=== PATIENT | female | born 1985 | race Caucasian/White ===

== ENCOUNTER 2019-01-09 15:16 | Emergency (ER) | payer SELFPAY ==
[~2019-01-09] VITALS: Ht 174 cm; Wt 62.1 kg
[2019-01-09 15:20] VITALS: BP 152/109
--- NOTE | 2019-01-09 15:24 | NUR ---
PT TO WAIT IN ER LOBBY. PTS BP ELEVATED, PT HAS HX OF HTN. AA0X4
--- NOTE | 2019-01-09 15:25 | NUR ---
PTS BP 152/109. DENNYS STATES SHE DOES NOT TAKE ANY MEDICATIONS FOR HER BP
--- NOTE | 2019-01-09 16:18 | NUR ---
PT TO ER BED 4
--- NOTE | 2019-01-09 16:28 | NUR ---
33 Y FEMALE C/O L EAR PAIN X 3 DAYS. WENT TO THE CLINIC ON FRIDAY AND WASNT ABLE TO BE SEEN WITHOUT AN APPT UNTIL FRIDAY. +YELLOW DRAINAGE AT HOME. PAIN 08/23. BP 152/109 ON TRIAGE. AA0X4. BED IS DOWN, LOCKED, BED RAIL X 1, ERMD TO SEE PT. PMH- HTN RX- DENIES
[2019-01-09 16:58] VITALS: BP 153/95
--- NOTE | 2019-01-09 16:59 | NUR ---
Patient discharged with v/s stable. Written and verbal after care instructions given and explained. Patient alert, oriented and verbalized understanding of instructions. Ambulatory with steady gait. All questions addressed prior to discharge. ID band removed. Patient advised to follow up with PMD. Rx of Amoxicillin and motrin given. Patient educated on indication of medication including possible reaction and side effects. Opportunity to ask questions provided and answered.
== END 2019-01-09 16:59 | disposition home or self-care (01) ==
LOC: MED 15:16
DX: H66.92 Otitis media, unspecified, left ear (principal); I10 Essential (primary) hypertension
CPT/HCPCS: 99283

== ENCOUNTER 2021-04-22 08:31 | Emergency (ER) | payer OTHER ==
[~2021-04-22] VITALS: Ht 160 cm; Wt 61.2 kg
--- NOTE | 2021-04-22 08:36 | NUR ---
Patient ambulated with steady gait to bed 12.
[2021-04-22 08:40] VITALS: BP 136/77
--- NOTE | 2021-04-22 09:13 | NUR ---
35/F BIB SELF WITH C/O DIZZINESS. STATES SHE HAD AN EPISODE OF DIZZINESS TWO DAYS AGO S/P DRINKING ONE BEER. STATES TODAY SHE WOKE UP FEELING THE SAME DIZZINESS AND STATES "I WANT TO MAKE SURE MY VITALS ARE OKAY." DENIES ANY DRUG OR ALCOHOL USE TODAY. DENIES CP, SOB, FEVER, CHILLS, N/V/D.
--- NOTE | 2021-04-22 09:50 | NUR ---
PATIENT ELOPED FROM FACILITY. DISCHARGE INSTRUCTIONS NOT GIVEN TO PATIENT. DR. BENITEZ NOTIFIED.
== END 2021-04-22 09:50 | disposition left against medical advice (07) ==
LOC: MED 08:31
DX: R42 Dizziness and giddiness (principal); I10 Essential (primary) hypertension; Z00.00 Encounter for general adult medical examination without abnormal findings
CPT/HCPCS: 93005; 99283

== ENCOUNTER 2021-08-29 20:33 | Emergency (ER) | payer MEDICAID, OTHER ==
[~2021-08-29] VITALS: Ht 152.4 cm; Wt 63.5 kg
[2021-08-29 20:50] VITALS: BP 183/125
--- NOTE | 2021-08-29 20:58 | NUR ---
PT AMBULATED TO BED 07.
[2021-08-29] MEDS ORDERED: [UNRECOGNIZED DRUG - CODE] BU (21:16)
--- NOTE | 2021-08-29 21:43 | NUR ---
pt sleeping. VSS. Will continue to monitor.
[2021-08-29 23:47] LABS: ANION GAP 13.6 (8-16); CARBON DIOXIDE 25.1 mmol/L (21-32); CREATININE 0.8 mg/dL (0.6-1.3); POTASSIUM 3.7 mmol/L (3.5-5.1)
[2021-08-29 23:48] LABS: TOTAL BILIRUBIN 0.3 mg/dL (0.0-1.0)
[2021-08-29] MEDS: KETOROLAC 30 MG/ML VIAL IM ONE (23:55)
[2021-08-30 02:04] LABS: BASOPHILS % (AUTO) 0.6 % (0.0-2.0); EOSINOPHILS # (AUTO) 0.1 K/uL (0-0.4); EOSINOPHILS % (AUTO) 1.4 % (0.0-4.0); HEMATOCRIT 37.3 % (36-48); HEMOGLOBIN 12.7 g/dL (12.0-16.0); LYMPHOCYTES # (AUTO) 2.6 K/uL (2.5-16.5); MEAN CORPUSCULAR HEMOGLOBIN 30 pg (27-31); MEAN CORPUSCULAR HGB CONC 34 g/dL (33-37); MEAN CORPUSCULAR VOLUME 88.4 fL (80-94); MONOCYTES # (AUTO) 0.6 K/uL (0.8-1.0); MONOCYTES % (AUTO) 7.5 % (1.7-9.3); NEUTROPHILS # (AUTO) 5.2 K/uL (1.8-7.7); NEUTROPHILS % (AUTO) 60.5 % (42.2-75.2); PLATELET COUNT (AUTO) 257 K/uL (140-450); RED BLOOD CELL COUNT(AUTO) 4.22 MIL/uL (4.20-5.40); RED CELL DISTRIBUTION WIDTH 14.4 % (11.6-13.7); WHITE BLOOD COUNT (AUTO) 8.5 K/uL (4.8-10.8)
[2021-08-30] MEDS ORDERED: CIPR7.5S OT (02:41)
[2021-08-30 02:51] VITALS: BP 136/84
--- NOTE | 2021-08-30 02:52 | NUR ---
Patient discharged with v/s stable. Written and verbal after care instructions given and explained. Patient alert, oriented and verbalized understanding of instructions. Ambulatory with steady gait. All questions addressed prior to discharge. ID band removed. Patient advised to follow up with PMD. Rx of cipro ear drops given. Patient educated on indication of medication including possible reaction and side effects. Opportunity to ask questions provided and answered.
== END 2021-08-30 02:52 | disposition home or self-care (01) ==
LOC: MED 20:33
DX: R51.9 Headache, unspecified (principal); H92.01 Otalgia, right ear; R50.9 Fever, unspecified; I10 Essential (primary) hypertension; F17.210 Nicotine dependence, cigarettes, uncomplicated; F15.90 Other stimulant use, unspecified, uncomplicated; Z79.899 Other long term (current) drug therapy
CPT/HCPCS: 36415; 70481; 80053; 85025; 96372; 99285; J1885; Q9967